=== PATIENT | female | born 1955 | race Caucasian/White ===

== ENCOUNTER → 2023-08-09 15:09 | Outpatient (REF) | payer OTHER, SELFPAY | LOC: HWRAD 15:09 | PROVIDERS: ATTENDING PHYSICIAN Internal Medicine Gastroenterology; FAMILY PHYSICIAN Family Medicine | DX: R10.12 Left upper quadrant pain (principal); R68.81 Early satiety | CPT/HCPCS: 74178; Q9967 ==

== ENCOUNTER → 2025-04-11 08:35 | Outpatient (REF) | payer MEDICARE, SELFPAY | LOC: RSP 08:35 | PROVIDERS: ATTENDING PHYSICIAN Hospitalist; FAMILY PHYSICIAN Family Medicine | DX: J45.909 Unspecified asthma, uncomplicated (principal); M05.79 Rheumatoid arthritis with rheumatoid factor of multiple sites without organ or systems involvement | CPT/HCPCS: 88738; 94060; 94727; 94729 ==

== ENCOUNTER → 2025-04-12 13:02 | Outpatient (REF) | payer MEDICARE, SELFPAY | LOC: HWWDC 13:02 | PROVIDERS: ATTENDING PHYSICIAN Hospitalist; FAMILY PHYSICIAN Family Medicine | DX: Z12.31 Encounter for screening mammogram for malignant neoplasm of breast (principal); M81.0 Age-related osteoporosis without current pathological fracture | CPT/HCPCS: 77063; 77067; 77080 ==

== ENCOUNTER → 2025-04-18 15:34 | Outpatient (REF) | payer MEDICARE, SELFPAY | LOC: HWRAD 15:34 | PROVIDERS: ATTENDING PHYSICIAN Hospitalist; FAMILY PHYSICIAN Family Medicine | DX: M54.42 Lumbago with sciatica, left side (principal) | CPT/HCPCS: 72114; 72202 ==

== ENCOUNTER → 2025-05-21 19:57 | Outpatient (REF) | payer MEDICARE, SELFPAY | LOC: PAVMRI 19:57 | PROVIDERS: ATTENDING PHYSICIAN Hospitalist; FAMILY PHYSICIAN Family Medicine | DX: M45.6 Ankylosing spondylitis lumbar region (principal); M54.42 Lumbago with sciatica, left side | CPT/HCPCS: 72148; 72195 ==